=== PATIENT | female | born 2000 | race Caucasian/White ===

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

== ENCOUNTER 2023-07-31 05:22 | Inpatient (IN) ==
--- NOTE | 2023-07-29 09:09 | Anesthesiology Consultation ---
Date of Service July 29, 2023 Assessment & Plan (1) Encounter for pre-operative examination: Plan - Per assessment manager on 07/29/2023: No known infectious disease contacts, current infectious disease symptoms in past 10 days or COVID positive test result in the past 90 days. 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 initiated History Surgery Operation Date: 07/31/23 07:30 Proposed Procedures p Section (Delivery of Baby Through Abdominal Incision) - Estelle Carrillo MD Height/Weight Height: 5 ft 4 in Weight: 112.945 kg Allergies Allergy/AdvReac Type Severity Reaction Status Date / Time vancomycin Allergy Severe ANAPHYLAXIS-SOB, Verified 07/29/23 07:40 THROAT SWELLING, RASH, ITCHY grass pollen Allergy Unknown Congested Verified 07/29/23 07:40 mold Allergy Unknown Congested Verified 07/29/23 07:40 lactase AdvReac Unknown INTOLERANCE Verified 07/29/23 07:40 hydromorphone [From Dilaudid] AdvReac Vomiting Verified 07/29/23 07:40 Medications Home Medications Medication Instructions Recorded Confirmed Last Taken prenat.vits,justice,[id number] 1 tab PO QAM 12/26/22 07/29/23 07/25/23 nystatin-triamcinolone 100,000 1 applic topical BID #15 grams 07/08/23 07/29/23 07/26/23 unit/gram-0.1 % topical ointment aspirin 81 mg capsule 81 mg PO DAILY 07/17/23 07/29/23 07/25/23 insulin aspart U-100 100 unit/mL 1 sliding scale dose subcut 07/17/23 07/29/23 07/17/23 17:36 (3 mL) subcutaneous pen (Novolog USEASDIRECTD 36 units FlexPen U-100 Insulin aspart) insulin detemir U-100 100 unit/mL See Rx Instructions .Route .COMPLEX 07/17/23 07/29/23 07/26/23 (3 mL) subcutaneous pen (Levemir FlexPen) omeprazole 10 mg capsule,delayed 10 mg PO QAM 07/17/23 07/29/23 07/25/23 release amoxicillin 500 mg tablet 500 mg PO BID 10 days #20 tabs 07/25/23 07/29/23 Unknown Past Medical History Medical History Hx of migraines UTI (urinary tract infection) been taking abx since 07/26/23 High blood cholesterol Chronic constipation 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 Irregular heart beat "WHEN LIES DOWN"-PT WAS TOLD "NOTHING TO WORRY ABOUT" Vitamin D deficiency Type 1 diabetes mellitus Sleep paralysis Lactase deficiency Insomnia Depression with anxiety (~07/12/23) Attention deficit disorder (ADD) Kidney stone HX Kidney infection HX Left ovarian cyst Past Family History Family History Grandmother (Maternal) Ovarian cancer, Onset Age: 26 Grandmother (Paternal) Breast cancer Mother Hypertension Cancer of kidney Other Cancer Diabetes Denies family history of Crohn's disease Colorectal cancer Ulcerative colitis Past Surgical History Surgical History History of tooth extraction History of esophagogastroduodenoscopy (EGD) S/P tonsillectomy and adenoidectomy Social History Smoking Status: Former smoker tobacco type: cigarettes Smoking cigarettes per day: 1 year ago Do You Dip or Chew Tobacco: No Hx Alcohol Use: Yes (not while ) alcohol intake frequency: a few times a month Hx Substance Use: No substance use type: does not use Lab Results Anesthesia Preop Results Results Anesthesia Widget: WBC 10.04 K/ul (4.8-10.8) 07/17/23 Hgb 12.1 g/dl (12.0-16.0) 07/17/23 Hct 37.6 % (37.0-47.0) 07/17/23 Plt 143 K/uL (130-400) 07/17/23 Na 137 mmol/L (136-145) 07/17/23 K 3.7 mmol/L (3.5-5.1) 07/17/23 Cl 107 mmol/L (98-107) 07/17/23 CO2 22 mmol/L (21-32) 07/17/23 BUN 6 mg/dl (6-23) 07/17/23 Creat 0.63 mg/dl (0.6-1.2) 07/17/23 Glucose Level 159 mg/dl (70-99(Fasting)) H 07/17/23 POC Glucose 141 mg/dl (70-99) H 07/17/23 TSH 1.51 uIU/mL (0.30-4.50) 06/18/23 HA1c 7.7 % (4.5-5.6) H 07/17/23 Urine Color Dark Yellow 07/24/23 Urine Appearance Turbid (Clear) A 07/24/23 Urine pH 6.0 (4.5-7.5) 07/24/23 Urine Specific [place] 1.023 (1.000-1.030) 07/24/23 Urine Protein Trace (Negative) H 07/24/23 Urine Glucose (UA) 2+ (Negative) H 07/24/23 Urine Ketones 1+ (Negative) H 07/24/23 Urine Blood Negative (Negative) 07/24/23 Urine Nitrite Negative (Negative) 07/24/23 Urine Bilirubin 1+ (Negative) H 07/24/23 Urine Urobilinogen Negative (Negative) 07/24/23 Urine Leukocyte Esterase 1+ (Negative) H 07/24/23 Urine WBC (Auto) 10-30 /hpf (0-5) H 07/24/23 Urine RBC (Auto) 0-4 /hpf (0-4) 07/24/23 Urine Hyaline Casts (Auto) 5-10 /lpf (0-5) H 07/24/23 Urine Epithelial Cells (Auto) >30 /lpf (0-5) H 07/24/23 Urine Bacteria (Auto) 2+ (Negative) H 07/24/23 Testing Electrocardiogram Date: 01/04/23 NSR, rate 75 bpm Other Testing Head and neck CTA 09/28/21 1. There is no hemorrhage, mass effect, or evidence of acute territorial ischemia by CT criteria. 2. Unremarkable CT angiogram of the brain. 3. Unremarkable CT angiogram of the neck. 4. There are numerous mildly enlarged cervical chain, submandibular, and supraclavicular lymph nodes. These are nonspecific and may be reactive. Correlate clinically for evidence of an infectious process such as mononucleosis. Clinical follow-up to resolution is recommended.
--- NOTE | 2023-07-30 17:17 | History & Physical Report ---
Date of Service July 30, 2023 Assessment & Plan (1) Encounter for pre-operative examination: (2) Type 1 diabetes mellitus affecting in third trimester, antepartum: Plan -Discussed indications, risks, benefits, alternatives with risks including infection, bleeding, injury to adjacent structures (bowel, bladder, ureters, blood vessels, nerves, baby), possible need for blood transfusion and/or life saving hysterectomy, VTE. Discussed reasoning for timing of delivery, risks vs benefits of it. Discussed risk of hypoglycemia given DM and 38 wks, however this would possibly occur at previously planned date as well. Consent reviewed in detail w/ pt and signed after all questions answered to her satisfaction. -planned for ancef, seems to be allergic to amoxicillin but tolerated keflex before. T&C 2U, has insulin regimen from endocrine for and was instructed on insulin this evening and in AM. History of Present Illness Chief Complaint: preop Primary Care Provider: Marilyn Rivera MD 23 yo G1 presents for preop for planned primary CS at 38 weeks due to T1DM and suspected LGA. +FM; denies ctx, LOF, VB. Is managed by [facility] endocrine who has her on levemir 70u AM/68u PM, 44u w/ meals. 07/12 had growth US EFW > 98% and AC > 98%. Projected to be over 4500g this week. 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: G1 irreg cycles denies hx stis 01/2022 neg cyto Allergies Allergy/AdvReac Type Severity Reaction Status Date / Time vancomycin Allergy Severe ANAPHYLAXIS-SOB, Verified 07/30/23 13:26 THROAT SWELLING, RASH, ITCHY grass pollen Allergy Unknown Congested Verified 07/30/23 13:26 mold Allergy Unknown Congested Verified 07/30/23 13:26 lactase AdvReac Unknown INTOLERANCE Verified 07/30/23 13:26 hydromorphone [From Dilaudid] AdvReac Vomiting Verified 07/30/23 13:26 Home Medications Medication Instructions Recorded Confirmed Type prenat.vits,justice,ggn-mcwc-nwcib 1 tab PO QAM 12/26/22 07/29/23 History nystatin-triamcinolone 100,000 1 applic topical BID #15 grams 07/08/23 07/29/23 Rx unit/gram-0.1 % topical ointment aspirin 81 mg capsule 81 mg PO DAILY 07/17/23 07/29/23 History insulin aspart U-100 100 unit/mL 1 sliding scale dose subcut 07/17/23 07/29/23 History (3 mL) subcutaneous pen (Novolog USEASDIRECTD FlexPen U-100 Insulin aspart) insulin detemir U-100 100 unit/mL See Rx Instructions .Route .COMPLEX 07/17/23 07/29/23 History (3 mL) subcutaneous pen (Levemir FlexPen) omeprazole 10 mg capsule,delayed 10 mg PO QAM 07/17/23 07/29/23 History release Patient History Medical History Hx of migraines UTI (urinary tract infection) been taking abx since 07/26/23 High blood cholesterol Chronic constipation 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 Irregular heart beat "WHEN LIES DOWN"-PT WAS TOLD "NOTHING TO WORRY ABOUT" Vitamin D deficiency Type 1 diabetes mellitus Sleep paralysis Lactase deficiency Insomnia Depression with anxiety (~07/12/23) Attention deficit disorder (ADD) Kidney stone HX Kidney infection HX Left ovarian cyst Surgical History History of tooth extraction History of esophagogastroduodenoscopy (EGD) S/P tonsillectomy and adenoidectomy Family History Grandmother (Maternal) Ovarian cancer, Onset Age: 26 Grandmother (Paternal) Breast cancer Mother Hypertension Cancer of kidney Other Cancer Diabetes Denies family history of Crohn's disease Colorectal cancer Ulcerative colitis Social History Smoking Status: Former smoker Tobacco Type: Cigarettes Cigarettes Per Day: 1 year ago; Second Hand Exposure: No; Do You Dip or Chew Tobacco: No; Hx Alcohol Use: Yes (not while ) Hx Substance Use: No Preferred Language: Kyrgyz Communication Ability: Effective Silverware Buffer Required: No Beliefs That Will Affect Care: None marital status: Single marital status details: motherPete Hagan [phone] Current Living Situation: Significant Other Current Living Situation Comment: fiyovana and dog current occupational status: employed 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 Feels Safe at Home: Yes Assistive Devices: None Physical Exam Respiratory: normal respiratory effort, lungs clear to auscultation Cardiovascular: RRR, no murmur, no edema Genitourinary: NST reactive Results & Data Laboratory Results OB Labs: Blood Type A Positive 01/04/23 Antibody Screen NEGATIVE 01/04/23 Hemoglobin 12.1 g/dl (12.0-16.0) 07/17/23 Hematocrit 37.6 % (37.0-47.0) 07/17/23 Mean Corpuscular Volume 83.4 fL (80.0-100.0) 07/17/23 Platelet Count 143 K/uL (130-400) 07/17/23 Rubella IgG Antibody Immune (Immune) 01/04/23 Rapid Plasma Reagin Nonreactive (Nonreactive) 01/04/23 Hepatitis B Surface Antigen. NON-REACTIVE (NON-REACTIVE) 01/04/23 Hepatitis C Antibody (EIA) NON-REACTIVE (NON-REACTIVE) 01/04/23 HIV (1&2) Ag and Ab Confirmation NON-REACTIVE (NON-REACTIVE) 01/04/23 Maternal Serum Alpha Fetoprotein 39.0 ng/mL 03/01/23 OB Optional Labs: Chlamydia trachomatis RNA Not Detected (NotDetected) 01/04/23 Neisseria gonorrhoeae RNA Not Detected (NotDetected) 01/04/23 Thyroid Stimulating Hormone (TSH) 1.51 uIU/mL (0.30-4.50) 06/18/23 Alpha Fetoprotein Triple Screen SEE NOTE 03/01/23 GBS+ urine Diagnostic Findings 07/12 EFW and AC > 98%, ant plac Coding Level of Care Code None Diagnoses Encounter for pre-operative examination Z01.818 Type 1 diabetes mellitus affecting in third trimester, antepartum O24.013
[2023-07-31] MEDS ORDERED: SODIUM CHLORIDE 0.9% 250 ML IV PRN ×2 (05:36→06:15)
[2023-07-31] MEDS ORDERED: LACTATED RINGER'S 1,000 ML IV SCH ×2 (06:00→09:32)
[2023-07-31] MEDS ORDERED: ceFAZolin 3,000 MG in DEXTROSE 5% 50 ML IV SCH (06:00)
[2023-07-31] MEDS ORDERED: CITRIC ACID/SODIUM CITRATE 15 ML UDC PO SCH (06:00)
[2023-07-31 06:27] LABS: Basophils # (auto) 0.02 K/uL (0.00-0.20); Basophils % (auto) 0.2 %; Eosinophils # (auto) 0.09 K/uL (0.00-0.50); Hemoglobin 12.8 g/dl (12.0-16.0); Immature Granulocytes # (auto) 0.07 K/uL (0.01-0.20); Immature Granulocytes % (auto) 0.7 %; Lymphocytes # (auto) 1.93 K/uL (1.20-3.40); Lymphocytes % (auto) 20.4 %; Mean Corpuscular Hemoglobin 26.7 pg (25.0-34.0); Mean Corpuscular Volume 83.5 fL (80.0-100.0); Mean Platelet Volume 13.4 fL (9.4-12.4); Monocytes # (auto) 0.61 K/uL (0.11-0.59); Monocytes % (auto) 6.4 %; Neutrophils # (auto) 6.75 K/uL (1.40-6.50); Neutrophils % (auto) 71.3 %; Platelet Count 133 K/uL (130-400); RDW Coefficient of Variation 14.7 % (11.5-14.5); RDW Standard Deviation 44.9 fL (36.4-46.3); Red Blood Count 4.79 M/uL (4.20-5.40); White Blood Count 9.47 K/ul (4.8-10.8)
[2023-07-31] MEDS ORDERED: fentaNYL citrate PF 100 MCG/2 ML VIAL ONE (06:40)
[2023-07-31] MEDS ORDERED: MoRPHine SULFATE PF 1 MG/ML 10 ML AMP/VIAL ONE (06:40)
[2023-07-31] MEDS ORDERED: PHENYLEPHRINE HCL 10 MG/ML VIAL ONE (06:42)
[2023-07-31] MEDS ORDERED: OXYTOCIN 10 UNITS/ML VIAL ONE ×3 (06:44)
--- NOTE | 2023-07-31 07:26 | History & Physical Bridge Note ---
Date of Service July 31, 2023 History & Physical Bridge Note I have examined the patient, reviewed the History & Physical and in the interval since the performance of the History & Physical I have noted the following changes of clinical significance: no changes noted
[2023-07-31] MEDS ORDERED: NALBUPHINE HCL 5 MG in SYRINGE 0 ML IV PRN (08:04)
[2023-07-31] MEDS ORDERED: HYDROmorphone INJ 0.5 MG/0.5 ML SYR IV PRN (08:04)
[2023-07-31] MEDS ORDERED: NALOXONE HCL 0.4 MG/1 ML VIAL/CARP IV PRN (08:04)
[2023-07-31] MEDS ORDERED: NALOXONE HCL 1 MG in SODIUM CHLORIDE 0.9% 1,000 ML IV PRN (08:04)
[2023-07-31] MEDS ORDERED: ePHEDrine sulfate 50 MG/ML AMP IV PRN (08:04)
[2023-07-31] MEDS ORDERED: diphenhydrAMINE 50 MG/ML VIAL IV PRN (08:04)
[2023-07-31] MEDS ORDERED: ONDANSETRON INJ 2 MG/ML 2 ML VIAL IV PRN (08:04)
[2023-07-31] MEDS ORDERED: NALOXONE HCL 0.08 MG in SYRINGE 1.8 ML IV PRN (08:04)
[2023-07-31] MEDS ORDERED: LACTATED RINGER'S 500 ML IV PRN (08:04)
[2023-07-31] MEDS ORDERED: MoRPHine SULFATE PF 1 MG/ML 10 ML AMP/VIAL INT SPINAL ONE (08:04)
[2023-07-31] MEDS ORDERED: DC INTRASPINAL MORPHINE SCH (08:15)
[2023-07-31] MEDS ORDERED: NO NARCOTICS OR SEDATIVES SCH (08:15)
[2023-07-31] MEDS ORDERED: SODIUM CHLORIDE 0.9% 1,000 ML IV SCH (08:15)
[2023-07-31] MEDS ORDERED: ONDANSETRON INJ 2 MG/ML 2 ML VIAL ONE ×3 (08:43)
[2023-07-31] MEDS ORDERED: PHARMACY GLYCEMIC MGMT CONSULT PRN (09:30)
--- NOTE | 2023-07-31 09:30 | Anesthesiology Progress Note ---
Date of Service July 31, 2023 Anesthesia Post Procedure Vital Signs Vital Signs: Temp Pulse Resp BP Pulse Ox O2 Del Method 07/31/23 09:27 79 108/55 L 07/31/23 09:26 78 96 07/31/23 09:23 79 94 07/31/23 09:21 80 99 07/31/23 09:16 80 98 07/31/23 09:13 79 122/56 L 07/31/23 07:22 88 145/71 H 07/31/23 05:54 96 H 130/84 07/31/23 05:40 36.8 C 18 Room Air Notes Mental Status: alert / awake / arousable Patient Amnestic to Procedure: Yes Nausea / Vomiting: adequately controlled Pain: adequately controlled Airway Patency, RR, SpO2: stable & adequate BP & HR: stable & adequate Hydration State: stable & adequate Neuraxial Anesthesia: was administered and sensory block is resolving Anesthetic Complications: no major complications apparent
--- NOTE | 2023-07-31 09:30 | Operative Report ---
PG Post Operative Report Pre & Post Diagnosis Operation Date: 07/31/23 07:30 Pre-Op Diagnosis: intrauterine at 38 weeks gestation poorly controlled type 1 diabetes suspected large for gestational age fetus Post-Op Diagnosis: same I identified the patient and participated in the time-out.: Yes Procedure Operation Date: 07/31/23 07:30 Actual Procedures p Primary Low Transverse Section in for live male liz at 0830 - Estelle Carrillo MD Surgeon Estelle Carrillo MD Cutting Room Supervisor MD Niurka Estimated Blood Loss 600 Findings Consistent with Post-Op Diagnosis Viable male infant weighing 10lb 11oz, APGARs of 8 and 9. Normal appearing uterus, bilateral fallopian tubes and ovaries. Subcutaneous tissue mildly edematous upon entry into skin Fluids 700cc crystalloid, 100cc UOP by altman catheter Specimens Placenta, cord blood Drains Urine draining clear urine Anesthesia Type Spinal Complications none Disposition Accompanied Patient To Recovery: Yes Disposition: L&D Indications 23 yo G1 at 38 wks presents for planned above listed procedure. She is a T1DM with difficulty controlling BG appropriately so recommended for delivery. Most recent growth US projected EFW and AC >98% and over 4500g in this week so was counseled regarding options and desired to proceed with CS Description of Procedure The patient was taken to the operating room after consents were ensured. The patient was properly identified. Spinal anesthesia was obtained without difficulty. The patient was placed in a dorsal supine position with left lateral tilt, then prepped and draped in normal sterile fashion. Surgical time out was performed. Antibiotics were given for prophylaxis. Anesthesia was tested to ensure adequate surgical levels. Pfannenstiel skin incision was performed and carried down to the underlying fascia with a knife. The fascia was then nicked in the midline and extended laterally with pickups and Zamora scissors. Superior portion of the fascia was grasped with Kochers x2 and elevated off the underlying rectus muscles using blunt dissection. Inferior portion of the fascia was then grasped with Arlin clamps x2 and also elevated off the underlying muscles with blunt dissection. Midline was identified. The peritoneum was then entered and extended to provide adequate room for delivery of baby. A hand was inserted into the abdomen, uterus was noted to be clear of adhesions. Bladder blade was inserted. A low transverse uterine incision was made in the uterus and extended bluntly in a superior to inferior fashion. Amniotomy was made with clear fluid at the time of rupture. head was grasped and elevated to the hysterotomy in an atraumatic fashion however was noted to be floating. Vacuum was applied to the flexion point and pressure increased to the green zone. With fundal pressure, vacuum was pulled and head delivered atraumatically in MARTIN position, loose nuchal cord. Remainder of the body delivered without incident. Nose and mouth were bulb suctioned on the surgical field. The cord was double clamped and cut, baby was handed off to awaiting pediatrics staff. Cord segment and blood were obtained. Placenta was then expressed from the uterus. The uterus was exteriorized. Several passes were made inside the uterus to remove the remaining membranes. Attention was then turned to the hysterotomy, which was then closed with a running locked suture of 0 Vicryl on a CTX needle. An imbricating layer was then performed using 0-Monocryl. There was noted to be good hemostasis. The posterior cul-de-sac was then inspected and cleaned of clot and debris. The hysterotomy was again inspected and noted to be hemostatic. The uterus was returned to the abdomen. The right and left pericolic gutters were cleaned of all clot and debris. The hysterotomy was again noted to be hemostatic. Space of Retzius was noted to be hemostatic. The fascia was then closed with a running suture of 0 Vicryl on a CT1 needle. Subcutaneous tissue was copiously irrigated and noted to be hemostatic. Subcutaneous tissue was re-approximated using 2-0 plain gut. The skin was then closed with a running suture of 3-0 Monocryl in a subcuticular fashion. At termination of the procedure, fundal pressure was applied and a moderate amount of lochia was expressed. JORDI dressing was applied to the patient. She tolerated the procedure well. All sponge, needle, instrument counts were correct x 2. I attest to the content of the Intraoperative Record and any orders documented therein. Any exceptions are noted below. OB Procedure Charges 05185
[2023-07-31] MEDS ORDERED: OXYTOCIN 20 UNITS/LR 1,002 ML IV SCH (09:32)
[2023-07-31] MEDS ORDERED: HYDROCORTISONE ACETATE 25 MG SUPP PR PRN (09:32)
[2023-07-31] MEDS ORDERED: MAGNESIUM HYDROXIDE SUSP 30 ML UDC PO PRN (09:32)
[2023-07-31] MEDS ORDERED: BENZOCAINE 20% SPRY 85 APPLN/85 GM CAN EXT PRN (09:32)
[2023-07-31] MEDS ORDERED: SENNA 8.6 MG TAB PO PRN (09:32)
[2023-07-31] MEDS ORDERED: DIPHTHERIA/TETANUS/PERTUSSIS Vaccine (Tdap, Age 7+yrs) 0.5mL SYR/VL IM ONE (09:32)
[2023-07-31] MEDS: KETOROLAC 30 MG/ML VIAL IV PRN ×2 (10:35→18:38)
[2023-07-31] MEDS ORDERED: GLUCAGON FOR INJ 1 MG VIAL IM PRN (11:45)
[2023-07-31] MEDS ORDERED: GLUCOSE 10 TAB/TUBE PO PRN (11:45)
[2023-07-31] MEDS ORDERED: DEXTROSE 50% 50 ML SYRINGE IV PRN (11:45)
[2023-07-31] MEDS ORDERED: Continuous Glucose Monitor SCH (11:45)
[2023-07-31] MEDS ORDERED: GLUCOSE 40% GEL 15 GM TUBE PO PRN (11:45)
[2023-07-31] MEDS ORDERED: CARBOHYDRATES FOR HYPOGLYCEMIA PO PRN (11:45)
[2023-07-31] MEDS: INSULIN ASPART 100 UNIT/ML SC SCH ×3 (12:40→21:39)
--- NOTE | 2023-07-31 13:17 | Pharmacy Report ---
Pharmacy Glycemic Short Note 2 - Date of Service July 31, 2023 - Glycemic Short BSG Results (Last 24 hours): 07/31/23 07/31/23 07:12 10:02 POC Glucose 90 89 OUTPATIENT ANTIDIABETIC REGIMEN: * During : Levemir 70 units @ 10am, 68 units @ 10pm, NovoLog with meals * Post plan from Endocrinology: * Levemir 35 units BID @ 10am and 10pm * Aspart 10-15 units with meals * Correction 1:25 for BG> 130mg/dl ASSESSMENT: * 23 yo female, s/p section, type 1 diabetic, on regimen as above, and recommended decrease in doses by endocrinology. * Pharmacy consulted for glycemic control. Met with patient and had a long discussion, we will use her insulin pens (NovoLog and Levemir) and begin with reduced doses from endocrinology as patient is euglycemic and just starting on clears post-op. * Patient states she does not think that she plans to breastfeed. 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 PLAN FOR INPATIENT GLYCEMIC CONTROL: * Basal insulin * Levemir SQ BID - 20 units for BG < 100mg/dl, 35 units for BG 100mg/dl or greater * Bolus insulin * NovoLog per scale ACHS or Q6hrs while NPO * Goal Range: Low 110 mg/dL - High 140 mg/dL * Correction Factor: 25 mg/dL/unit * Nutritional / Prandial insulin per carb ratio of 1 unit per 8 grams CHO consumed
[2023-07-31] MEDS: INSULIN DETEMIR SC SCH ×2 (13:42→21:37)
[2023-07-31] MEDS: SIMETHICONE 80 MG CHEW PO SCH ×3 (13:43→20:26)
[2023-07-31] MEDS: DOCUSATE SODIUM 100 MG CAP PO SCH (20:25)
[2023-08-01] MEDS: KETOROLAC 30 MG/ML VIAL IV PRN (00:07)
[2023-08-01] MEDS ORDERED: diphenhydrAMINE Capsule 25 MG CAP PO PRN (02:04)
[2023-08-01] MEDS ORDERED: PROMETHAZINE HCL 25 MG in SODIUM CHLORIDE 0.9% 50 ML IV PRN (02:04)
[2023-08-01] MEDS ORDERED: diphenhydrAMINE 50 MG/ML VIAL IV PRN (02:04)
[2023-08-01] MEDS ORDERED: KETOROLAC 30 MG/ML VIAL IV PRN (02:04)
[2023-08-01] MEDS ORDERED: ONDANSETRON INJ 2 MG/ML 2 ML VIAL IV PRN (02:04)
[2023-08-01] MEDS: INSULIN ASPART 100 UNIT/ML SC SCH ×5 (02:45→22:00)
--- NOTE | 2023-08-01 04:35 | Obstetrical Progress Note ---
Date of Service <Armando Machuca DO - Last Filed: 08/01/23 06:22> August 01, 2023 Assessment & Plan <Armando Machuca DO - Last Filed: 08/01/23 06:22> (1) Type 1 diabetes mellitus: (2) Status post delivery: Plan 23 year old female, , POD#1: Eating well, voiding well, ambulating well Vitals reviewed, WNL Pain well controlled with Percocet and Motrin Routine post-op care - OOB, ambulation, diet progression as tolerated Will have 6 week follow up with Dr. Carrillo <Estelle Carrillo MD - Last Filed: 08/01/23 07:32> (1) Type 1 diabetes mellitus: (2) Status post delivery: Subjective <Armando Machuca - Last Filed: 08/01/23 06:22> Ambulation: ambulating normally Voiding: no voiding problems Passing Gas:: Yes Diet Tolerance:: regular diet Lochia:: Moderate Feeding Type:: bottle feeding Pain well controlled with Percocet and Motrin Review of Systems -Denies fever or chills -Denies dyspnea, chest pain, or palpitations -Denies dysuria -Denies headache or changes in vision Physical Exam <Armando Machuca - Last Filed: 08/01/23 06:22> General: Alert and oriented. No acute distress Cardiac: Regular rate and rhythm, no murmurs appreciated Respiratory: Lungs clear to auscultation bilaterally, No increased work of breathing Abdominal: Soft, non-tender, non-distended. Bowel sounds present. Uterus: Uterine fundus firm, palpable below umbilicus Extremities: No lower extremity edema, calves non-tender bilaterally Results & Data <Armando Machuca - Last Filed: 08/01/23 06:22> Vital Signs (Past 12 Hours) Vital Signs Temp Pulse Resp BP Pulse Ox O2 Del Method 08/01/23 01:55 20 99 08/01/23 00:05 20 98 08/01/23 00:05 36.9 C 87 20 103/70 98 Room Air 07/31/23 23:55 20 100 07/31/23 21:55 20 100 07/31/23 20:55 20 100 07/31/23 19:35 20 98 07/31/23 19:35 36.8 C 88 20 109/71 98 Room Air 07/31/23 18:55 20 99 07/31/23 17:48 20 100 Supervising Physician <Estelle Carrillo MD - Last Filed: 08/01/23 07:32> Co-Signing Physician Notes Resident Physician Supervision Note: I interviewed and examined the patient. Discussed with Dr. Machuca and agree with findings and plan as documented in the note. Any exceptions or clarifications are listed here: POD1 s/p pLTCS, doing well. VSS, exam benign and wnl, ryder dressing in place. Continue routine postop care, using own insulin w/ assistance of pharmacy to manage T1DM. Will need ryder removed next week Documented By: Estelle Carrillo MD Resident Activity Tracking <Armando Machuca DO - Last Filed: 08/01/23 06:22> Resident Involvement: Resident Care Provided Care Provided: OB Delivery
[2023-08-01] MEDS: oxyCODONE/ACETAMINOPHEN 5mg/325mg TAB PO PRN ×4 (06:09→20:58)
[2023-08-01] MEDS: IBUPROFEN 600 MG TAB PO PRN ×4 (06:09→21:00)
[2023-08-01 07:58] LABS: Basophils # (auto) 0.02 K/uL (0.00-0.20); Basophils % (auto) 0.2 %; Eosinophils # (auto) 0.07 K/uL (0.00-0.50); Eosinophils % (auto) 0.8 %; Hematocrit (blood only) 30.1 % (37.0-47.0); Hemoglobin 9.9 g/dl (12.0-16.0); Immature Granulocytes # (auto) 0.05 K/uL (0.01-0.20); Immature Granulocytes % (auto) 0.6 %; Lymphocytes # (auto) 1.44 K/uL (1.20-3.40); Lymphocytes % (auto) 16.1 %; Mean Corpuscular Hemoglobin 26.9 pg (25.0-34.0); Mean Corpuscular Hgb Conc 32.9 g/dL (32.0-36.0); Mean Corpuscular Volume 81.8 fL (80.0-100.0); Mean Platelet Volume 13.6 fL (9.4-12.4); Monocytes % (auto) 5.6 %; Neutrophils # (auto) 6.87 K/uL (1.40-6.50); Neutrophils % (auto) 76.7 %; Platelet Count 112 K/uL (130-400); RDW Coefficient of Variation 14.9 % (11.5-14.5); RDW Standard Deviation 43.8 fL (36.4-46.3); Red Blood Count 3.68 M/uL (4.20-5.40); White Blood Count 8.95 K/ul (4.8-10.8)
[2023-08-01] MEDS: SIMETHICONE 80 MG CHEW PO SCH ×4 (08:53→21:00)
[2023-08-01] MEDS: FERROUS SULFATE 325 MG TAB PO SCH (08:54)
[2023-08-01] MEDS: DOCUSATE SODIUM 100 MG CAP PO SCH ×2 (08:54→20:58)
[2023-08-01] MEDS: PRENATAL VITAMIN 1 TAB PO SCH (08:54)
--- NOTE | 2023-08-01 09:32 | Pharmacy Report ---
Pharmacy Glycemic Short Note 2 - Date of Service August 01, 2023 - Glycemic Short BSG Results (Last 24 hours): 07/31/23 08/01/23 10:02 08:29 POC Glucose 89 220 H OUTPATIENT ANTIDIABETIC REGIMEN: * During : Levemir 70 units @ 10am, 68 units @ 10pm, NovoLog with meals * Post plan from Endocrinology: * Levemir 35 units BID @ 10am and 10pm * Aspart 10-15 units with meals: BG - 130 divided by 25 = NovoLog dose ASSESSMENT: 08/01/23 * Patient would like to manage insulin dosing per endocrine via CGM. Patient and nursing following CGM policy. Patient likes to dose NovoLog after eating, encouraged patient to give prior to eating for better glycemic control. Patient using own home Levemir and NovoLog. * Pharmacy consult not needed. 07/31/23 * 23 yo female, s/p section, type 1 diabetic, on regimen as above, and recommended decrease in doses by endocrinology. * Pharmacy consulted for glycemic control. Met with patient and had a long discussion, we will use her insulin pens (NovoLog and Levemir) and begin with reduced doses from endocrinology as patient is euglycemic and just starting on clears post-op. * Patient states she does not think that she plans to breastfeed. 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 PLAN FOR INPATIENT GLYCEMIC CONTROL: * Per Endocrinology: * Basal insulin * Levemir 35 units SQ BID * Bolus insulin * NovoLog per scale ACHS or Q6hrs while NPO * BG - 130 divided by 25 = NovoLog dose * Pharmacy is signing off of glycemic consult and will no longer be making adjustments to inpatient regimen. Please feel free to re-consult if needed. Thank you.
[2023-08-01] MEDS: INSULIN DETEMIR SC SCH ×2 (09:50→23:32)
[2023-08-01] MEDS ORDERED: bisacodyL 5 MG TABEC PO SCH (20:00)
[2023-08-02] MEDS: oxyCODONE/ACETAMINOPHEN 5mg/325mg TAB PO PRN ×6 (00:58→21:10)
[2023-08-02] MEDS: IBUPROFEN 600 MG TAB PO PRN ×6 (00:58→22:22)
--- NOTE | 2023-08-02 04:55 | Obstetrical Progress Note ---
Date of Service <Armando Machuca - Last Filed: 08/02/23 07:16> August 02, 2023 Assessment & Plan <Armando Machuca - Last Filed: 08/02/23 07:16> (1) Type 1 diabetes mellitus: (2) Status post delivery: Plan 23 year old female, , POD#2: Eating well, voiding well, ambulating well Vitals reviewed, WNL Pain well controlled with Percocet and Motrin Carmel dressing in place, remove at 1 week post-op Routine post-op care - OOB, ambulation, diet progression as tolerated Will have 6 week follow up with Dr. Carrillo <Addi Rocha MD, FACOG - Last Filed: 08/02/23 07:20> (1) Type 1 diabetes mellitus: (2) Status post delivery: Subjective <Armando Machuca - Last Filed: 08/02/23 07:16> Ambulation: ambulating normally Voiding: no voiding problems Passing Gas:: Yes Diet Tolerance:: regular diet Lochia:: Moderate Feeding Type:: bottle feeding Pain well controlled with Percocet and Motrin Review of Systems -Denies fever or chills -Denies dyspnea, chest pain, or palpitations -Denies dysuria -Denies headache or changes in vision Physical Exam <Armando Machuca - Last Filed: 08/02/23 07:16> General: Alert and oriented. No acute distress Cardiac: Regular rate and rhythm, no murmurs appreciated Respiratory: Lungs clear to auscultation bilaterally, No increased work of breathing Abdominal: Soft, non-tender, non-distended. Bowel sounds present. Uterus: Uterine fundus firm, palpable below umbilicus Skin: Carmel dressing in place Extremities: No lower extremity edema, calves non-tender bilaterally Results & Data <Armando Machuca - Last Filed: 08/02/23 07:16> Vital Signs (Past 12 Hours) Vital Signs Temp Pulse Resp BP Pulse Ox O2 Del Method 08/02/23 03:15 36.6 C 90 16 125/79 98 Room Air 08/01/23 23:30 36.4 C L 93 H 20 120/84 98 Room Air 08/01/23 17:00 36.6 C 95 H 20 140/76 98 Room Air Supervising Physician <Addi Rocha MD, FACOG - Last Filed: 08/02/23 07:20> Co-Signing Physician Notes Resident Physician Supervision Note: I was present with Dr. Machuca during the history and exam. I discussed the case with the resident and agree with the findings and plan as documented in the note. Any exceptions or clarifications are listed here: [None] Documented By: Addi Rocha MD, FACOG Resident Activity Tracking <Armando Machuca DO - Last Filed: 08/02/23 07:16> Resident Involvement: Resident Care Provided Care Provided: OB Delivery
[2023-08-02 06:42] LABS: Hematocrit (blood only) 28.2 % (37.0-47.0); Hemoglobin 9.3 g/dl (12.0-16.0)
[2023-08-02] MEDS: DOCUSATE SODIUM 100 MG CAP PO SCH ×2 (08:29→21:10)
[2023-08-02] MEDS: FERROUS SULFATE 325 MG TAB PO SCH (08:29)
[2023-08-02] MEDS: PRENATAL VITAMIN 1 TAB PO SCH (08:29)
[2023-08-02] MEDS: SIMETHICONE 80 MG CHEW PO SCH ×4 (08:29→21:10)
[2023-08-02] MEDS ORDERED: bisacodyL 10 MG SUPP PR PRN (09:18)
[2023-08-02] MEDS: INSULIN DETEMIR SC SCH ×2 (10:00→22:20)
[2023-08-02] MEDS: INSULIN ASPART 100 UNIT/ML SC SCH ×4 (16:18→22:20)
[2023-08-03] MEDS: IBUPROFEN 600 MG TAB PO PRN ×2 (03:06→08:55)
[2023-08-03] MEDS: oxyCODONE/ACETAMINOPHEN 5mg/325mg TAB PO PRN ×2 (03:06→08:55)
--- NOTE | 2023-08-03 04:20 | Obstetrical Progress Note ---
Date of Service <Aramndo Mendozamattie - Last Filed: 08/03/23 06:03> August 03, 2023 Assessment & Plan <Armando Machuca - Last Filed: 08/03/23 06:03> (1) Type 1 diabetes mellitus: (2) Status post delivery: Plan 23 year old female, , POD#3: Eating well, voiding well, ambulating well Vitals reviewed, WNL Pain partially alleviated with Percocet and Motrin Carmel dressing in place, remove at 1 week post-op Routine post-op care - OOB, ambulation, diet progression as tolerated Will have 6 week follow up with Dr. Carrillo <Peyton Morgan MD - Last Filed: 08/03/23 07:09> (1) Type 1 diabetes mellitus: I was present with Dr. Machuca during the history and exam. I discussed the case with the resident and agree with the findings and plan as documented in the note. Any exceptions or clarifications are listed here: [None] (2) Status post delivery: Subjective <Armando Mendozamattie - Last Filed: 08/03/23 06:03> Ambulation: ambulating normally Voiding: no voiding problems Passing Gas:: Yes Diet Tolerance:: regular diet Lochia:: Moderate Feeding Type:: bottle feeding Patient endorses moderate pain, partially alleviated with Percocet and Motrin Review of Systems -Denies fever or chills -Denies dyspnea, chest pain, or palpitations -Denies dysuria -Denies headache or changes in vision Physical Exam <Armando MendozaDO mattie - Last Filed: 08/03/23 06:03> General: Alert and oriented. No acute distress Cardiac: Regular rate and rhythm, no murmurs appreciated Respiratory: Lungs clear to auscultation bilaterally, No increased work of breathing Abdominal: Soft, non-tender, non-distended. Bowel sounds present. Uterus: Uterine fundus firm, palpable below umbilicus Skin: Carmel dressing in place Extremities: Mild bilateral LE edema to mid-calf level, symmetrical bilaterally, no erythema or warmth to touch, calves non-tender bilaterally Results & Data <Armando DO Sven - Last Filed: 08/03/23 06:03> Vital Signs (Past 12 Hours) Vital Signs Temp Pulse Resp BP Pulse Ox O2 Del Method 08/02/23 22:50 36.4 C L 82 18 120/78 99 Room Air 08/02/23 20:45 Room Air 08/02/23 19:32 36.8 C 84 18 116/53 L 98 Room Air Resident Activity Tracking <Armando Machuca DO - Last Filed: 08/03/23 06:03> Resident Involvement: Resident Care Provided Care Provided: OB Delivery
[2023-08-03] MEDS: SIMETHICONE 80 MG CHEW PO SCH (08:54)
[2023-08-03] MEDS: PRENATAL VITAMIN 1 TAB PO SCH (08:55)
[2023-08-03] MEDS: FERROUS SULFATE 325 MG TAB PO SCH (08:55)
[2023-08-03] MEDS: DOCUSATE SODIUM 100 MG CAP PO SCH (08:55)
[2023-08-03] MEDS: INSULIN DETEMIR SC SCH (10:09)
[2023-08-03] MEDS ORDERED: ONDANSETRON 4 MG OD TAB ONE (10:29)
--- NOTE | 2023-08-05 20:22 | Discharge Summary ---
Date of Service August 05, 2023 Admission HPI Per Admitting Provider 23 yo G1 presents for preop for planned primary CS at 38 weeks due to T1DM and suspected LGA. +FM; denies ctx, LOF, VB. Is managed by [facility] endocrine who has her on levemir 70u AM/68u PM, 44u w/ meals. 07/12 had growth US EFW > 98% and AC > 98%. Projected to be over 4500g this week. 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 She is a T1DM with difficulty controlling BG appropriately so recommended for delivery. Most recent growth US projected EFW and AC >98% and over 4500g in this week so was counseled regarding options and desired to proceed with CS. See op report for details. Post-operative course was uncomplicated, pharmacy was consulted to aid in BG management. She was discharged home on POD3 with plan for 1 wk f/u for ryder removal Coding Level of Care Code None Diagnoses Status post delivery Z98.891
== END 2023-08-03 12:51 | disposition home or self-care (01) | DRG 788 ==
LOC: 4S1 05:22 → 4E2 12:18 → EDSTATUS 08-09 07:30

== ENCOUNTER 2025-04-07 07:41 | Inpatient (IN) ==
--- NOTE | 2025-04-06 12:54 | Anesthesiology Consultation ---
Date of Service April 06, 2025 Assessment & Plan (1) Encounter for pre-operative examination: Infectious disease screening: Per assessment on 04/06/25- No known recent infectious disease contacts or current infectious disease symptoms. Chart Review Chart Review: entry level sales associate initiated History Surgery Operation Date: 04/07/25 09:30 Proposed Procedures p Section - Addi Rocha MD, FACOG s with Bilateral Tubal Ligation - Addi Rocha MD, FACOG Height/Weight Height: 5 ft 3 in Weight: 90.718 kg Allergies Allergy/AdvReac Type Severity Reaction Status Date / Time vancomycin Allergy Severe Anaphylaxis, Verified 04/06/25 12:54 throat swelling, rash, itching amoxicillin Allergy Mild Rash Verified 04/06/25 12:25 grass pollen Allergy Mild Congested Verified 04/06/25 12:25 mold Allergy Mild Congestion Verified 04/06/25 12:54 hydromorphone [From Dilaudid] AdvReac Mild Vomiting Verified 04/06/25 12:25 lactase AdvReac Mild Intolerance Verified 04/06/25 12:54 Medications Home Medications Medication Instructions Recorded Confirmed Last Taken blood-glucose,grain receiver,cont #1 ea 02/04/24 04/06/25 Unknown (Dexcom G6 Window Covering Sales Consultant) insulin aspart U-100 100 unit/mL See Rx Instructions subcut 08/17/24 04/06/25 1 Day Ago subcutaneous solution (Novolog USEASDIRECTD #50 mL ~04/05/25 U-100 Insulin aspart) [id number] 1 tab PO DAILY 09/11/24 04/06/25 Unknown [ Plus] aspirin 81 mg tablet,delayed 81 mg PO QPM 11/18/24 04/06/25 1 Day Ago release ~04/05/25 blood-glucose sensor (Dexcom G6 #3 ea 12/11/24 04/06/25 Unknown Sensor device) blood-glucose transmitter (Dexcom #1 ea 12/11/24 04/06/25 Unknown G6 Transmitter device) insulin pump cart,auto,BT,G6/7 #10 ea 12/11/24 04/06/25 Unknown (Omnipod 5 G6-G7 Pods (Gen 5) subcutaneous cartridge) sodium chloride 1,000 mg soluble 1,000 mg PO BID #180 tabs 12/24/24 04/06/25 Unknown tablet pen needle, diabetic 31 gauge x #150 ea 02/05/25 04/06/25 Unknown 5/16" insulin lispro 100 unit/mL See Rx Instructions subcut 03/12/25 04/06/25 1 Day Ago subcutaneous pen (Humalog Kimberly .COMPLEX #15 mL ~04/05/25 (U-100) Insulin) insulin glargine U-300 conc 300 44 unit subcut DAILY 04/06/25 04/06/25 1 Day Ago unit/mL (1.5 mL) subcutaneous pen ~04/05/25 (Toujeo SoloStar U-300 Insulin) lansoprazole 30 mg capsule,delayed 30 mg PO QAM 04/06/25 04/06/25 Unknown release (Prevacid) levothyroxine 88 mcg tablet 88 mcg PO QAM 04/06/25 04/06/25 Unknown Past Medical History Medical History (Updated 04/06/25 @ 13:06 by Kristie Murcia) Acromioclavicular (joint) (ligament) sprain Anxiety and depression Diabetes mellitus type 1 Gastroparesis Headache in History of kidney stones no surgery Hx of migraines IBS (irritable bowel syndrome) Insomnia Lactase deficiency Lactose intolerance LGA (large for gestational age) fetus affecting mother, antepartum Obesity affecting , antepartum Spinal stenosis Thoracic outlet syndrome Ulnar neuropathy Past Family History Family History Grandmother (Maternal) Ovarian cancer, Onset Age: 26 Grandmother (Paternal) Breast cancer Mother Cancer of kidney Hypertension Grandfather (Paternal) Diabetes Other Cancer No family history of adverse response to anesthesia Denies family history of Crohn's disease Colorectal cancer Ulcerative colitis Past Surgical History Surgical History (Updated 04/06/25 @ 13:06 by Kristie Murcia) History of esophagogastroduodenoscopy (EGD) S/P tonsillectomy and adenoidectomy Status post delivery [place] teeth removed Social History Smoking Status: Former smoker tobacco type: cigarettes Smoking cigarettes per day: Quit with first Do You Dip or Chew Tobacco: No Smoking End Date: 2021 Hx Alcohol Use: No alcohol intake frequency: a few times a month Hx Substance Use: No substance use type: does not use Testing Electrocardiogram Date: 03/19/25 Findings: + NSR @ (81) Chest X-Ray Date: 11/18/24 Impression: Normal chest radiograph Other Testing 2 day Cardiac event monitor Date: 12/16/24 Sinus rhythm. Average HR 89bpm. Min HR 70bpm. Max HR 133bpm. Very rare atrial and ventricular ectopy without significant atrial or ventricular arrhythmias. No significant bradycardia, pausea or heart block. No a. fib. Impression: "Normal Holter monitor without significant arrhythmia.. No symptoms reported.."
[~2025-04-07 07:41] MED LIST changes: -BCPILLS PO; +DEXAMETHASONE SOD INJ 4 MG/ML VIAL ONE; -FLUO10CA48 PO; -INSPMPNVLG; +MoRPHine SULFATE PF 1 MG/ML 10 ML AMP/VIAL ONE; +ONDANSETRON INJ 2 MG/ML 2 ML VIAL ONE; +OXYTOCIN 10 UNITS/ML VIAL ONE
[2025-04-07] MEDS: LACTATED RINGER'S 1,000 ML IV SCH ×3 (08:20→21:30)
[2025-04-07] MEDS ORDERED: SODIUM CHLORIDE 0.9% 100 ML IV PRN (08:55)
[2025-04-07 08:59] LABS: Hematocrit (blood only) 37.2 % (37.0-47.0); Hemoglobin 11.6 g/dl (12.0-16.0)
[2025-04-07] MEDS: ACETAMINOPHEN 500 MG TAB PO SCH (09:03)
[2025-04-07 09:19] LABS: Mean Corpuscular Hemoglobin 23.2 pg (25.0-34.0); Mean Corpuscular Volume 74.3 fL (80.0-100.0); Platelet Count 86 K/uL (130-400); RDW Standard Deviation 38.9 fL (36.4-46.3); Red Blood Count 5.01 M/uL (4.20-5.40); White Blood Count 6.88 K/ul (4.8-10.8)
--- NOTE | 2025-04-07 09:23 | History & Physical Report ---
Date of Service April 07, 2025 Assessment & Plan (1) Diabetes mellitus affecting : Plan: Repeat section, and bilateral salpingectomy The patient was counseled to the nature of the procedure including alternatives such as labor. Risks were discussed including bleeding infection injury to bowel bladder ureter vessels and even baby. The risks of internal organ injury were discussed as being higher with prior sections. Deep Vein Thrombosis, pulmonary embolus and breakdown of the incision discussed. Deep vein thrombosis pulmonary embolus hernia and failure of the incision to heal were discussed Patient verbalized understanding of this and was given ample time to ask questions Note patient wishes tubal ligation as well we discussed bilateral salpingectomy be discussed this is not reversible we discussed the issues of regret we dis cussed failure rates of tubal ligations as well as the are not 100% We discussed additional risk to her with her diabetes being poorly controlled increased risk of infection and incision breakdown we will use a ryder dressing Ancef dosed appropriately reviewed in depth we are also at 37 weeks because of poor control this has been recommended by maternal- medicine as my colleagues had talked to them last week and scheduled the section on my day this was the recommendation from maternal- medicine Admission and Anticipated Discharge Date Admission Date: April 07, 2025 History of Present Illness Primary Care Provider: Marilyn Rivera MD FANNY Calculator Estimated Delivery Date Method Current WG Current Estimate 04/28/25 LMP (Uncertain) 36w 6d Other Estimates 04/25/25 Ultrasound #1 37w 2d and Delivery Plans Obesity (BMI between 35-39 @ beginning of ) *Growth US @ 32 wks *Weekly NSTs @ 36wks DM Protocol - Non compliant with persistently significantly elevated blood sugars noted *Baby ASA daily, start 12-28wks, continue until del *Ophthalmology consult - saw Jun 2024 *Dietary consult - sees endo *Qmonthly urine cultures * Echo [id number]- 12/29/24 *Twice weekly NST's @ 32 or 34wks *Serial Growth US starting 28wks *Baseline 24hr Urine and Q trimester *EKG (Cardio [id number]) *Deliver at 37 weeks per MFM at [facility] for severe macrosomia and grossly abnormal blood sugars Low lying placenta at 20 weeks will recheck with monthly growth scan Hypercholesterolemia Stopped Statin at +HPT Prior Schedule @ 28wk. C/S WITH TUBAL SCHEDULED FOR 04/23/[address] WILKINS AND DR. VILLATORO ASSIST C/S WITH TUBAL RESCHEDULED FOR 04/07/[address] DIANE AND DR. VILLATORO ASSIST Hx of LGA GBS Positive in Urine *Treat in Labor Hepatitis B Non Immune *Recommend Hepatitis B Vaccine Allergies Allergy/AdvReac Type Severity Reaction Status Date / Time vancomycin Allergy Severe Anaphylaxis, Verified 04/06/25 12:54 throat swelling, rash, itching amoxicillin Allergy Mild Rash Verified 04/06/25 12:25 grass pollen Allergy Mild Congested Verified 04/06/25 12:25 mold Allergy Mild Congestion Verified 04/06/25 12:54 hydromorphone [From Dilaudid] AdvReac Mild Vomiting Verified 04/06/25 12: lactase AdvReac Mild Intolerance Verified 04/06/25 12:54 Home Medications Medication Instructions Recorded Confirmed Type blood-glucose,flatcar whacker,cont #1 ea 02/04/24 04/06/25 Rx (Dexcom G6 Material Engineer) insulin aspart U-100 100 unit/mL See Rx Instructions subcut 08/17/24 04/06/25 Rx subcutaneous solution (Novolog USEASDIRECTD #50 mL U-100 Insulin aspart) [id number] 1 tab PO DAILY 09/11/24 04/07/25 History [ Plus] aspirin 81 mg tablet,delayed 81 mg PO QPM 11/18/24 04/07/25 History release blood-glucose sensor (Dexcom G6 #3 ea 12/11/24 04/06/25 Rx Sensor device) blood-glucose transmitter (Dexcom #1 ea 12/11/24 04/06/25 Rx G6 Transmitter device) insulin pump cart,auto,BT,G6/7 #10 ea 12/11/24 04/06/25 Rx (Omnipod 5 G6-G7 Pods (Gen 5) subcutaneous cartridge) sodium chloride 1,000 mg soluble 1,000 mg PO BID #180 tabs 12/24/24 04/06/25 Rx tablet pen needle, diabetic 31 gauge x #150 ea 02/05/25 04/06/25 Rx 5/16" insulin lispro 100 unit/mL See Rx Instructions subcut 03/12/25 04/06/25 Rx subcutaneous pen (Humalog KwikPen .COMPLEX #15 mL (U-100) Insulin) insulin glargine U-300 conc 300 44 unit subcut DAILY 04/06/25 04/07/25 History unit/mL (1.5 mL) subcutaneous pen (Toujeo SoloStar U-300 Insulin) lansoprazole 30 mg capsule,delayed 30 mg PO QAM 04/06/25 04/06/25 History release (Prevacid) levothyroxine 88 mcg tablet 88 mcg PO QAM 04/06/25 04/07/25 History Patient History Medical History Lactose intolerance History of kidney stones no surgery Gastroparesis Diabetes mellitus type 1 Anxiety and depression LGA (large for gestational age) fetus affecting mother, antepartum Obesity affecting , antepartum Headache in Ulnar neuropathy Thoracic outlet syndrome IBS (irritable bowel syndrome) Acromioclavicular (joint) (ligament) sprain Spinal stenosis Lactase deficiency Insomnia Hx of migraines Surgical History [place] teeth removed Status post delivery History of esophagogastroduodenoscopy (EGD) S/P tonsillectomy and adenoidectomy Family History Grandmother (Maternal) Ovarian cancer, Onset Age: 26 Grandmother (Paternal) Breast cancer Mother Cancer of kidney Hypertension Grandfather (Paternal) Diabetes Other Cancer No family history of adverse response to anesthesia Denies family history of Crohn's disease Colorectal cancer Ulcerative colitis Social History (Updated 04/07/25 @ 08:22 by Mandie Machado RN) Smoking Status: Former smoker Tobacco Type: Cigarettes Age Started Using Tobacco: 17; Age Quit Using Tobacco: 22; Cigarettes Per Day: Quit with first ; Smoking End Date: 2021; Second Hand Exposure: No; Do You Dip or Chew Tobacco: No; Hx Alcohol Use: No Hx Substance Use: No Preferred Language: Arabic Communication Ability: Effective Business Continuity Coordinator Required: No Beliefs That Will Affect Care: None marital status: Single marital status details: Chemo Taylor (26) [phone] Current Living Situation: Family Current Living Situation Comment: Lives with FOB and son, 1 dog current occupational status: unemployed 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 How many Children do You have: 1 Other Information That Helps Us Care for You: No Feels Safe at Home: Yes Safety Concerns: Feels Safe At This Time Childhood Exposure to Second-Hand Smoke: Yes Diet: regular caffeine: No Dental Care, Regularly: Yes Physical Activity Frequency: Daily Seatbelt Use: always Sunscreen Use: Yes Gender Identity: Female Assistive Devices: Glasses Physical Exam Constitutional: WD/WN, vitals as above well developed and well nourished Respiratory: normal respiratory effort, lungs clear to auscultation normal respiratory effort Cardiovascular: RRR, no murmur, no edema Gastrointestinal (Abdomen): normal bowel sounds, soft, nontender, no hepatosplenomegaly Results & Data Vital Signs (Past 12 Hours) Vital Signs Temp Pulse BP 04/07/25 08:35 83 128/79 04/07/25 08:28 97.7 F Coding Level of Care Code None Diagnoses Diabetes mellitus affecting in third trimester O24.913 Trimester: third trimester (1) Diabetes mellitus affecting Trimester: third trimester Qualified Code(s): O24.913 - Unspecified diabetes mellitus in , third trimester
[2025-04-07] MEDS: CITRIC ACID/SODIUM CITRATE 15 ML UDC PO SCH (09:40)
[2025-04-07] MEDS: ceFAZolin 3000MG 3,000 MG/72.5 ML BAG IV SCH (10:33)
[2025-04-07] MEDS ORDERED: GLYCOPYRROLATE 0.2 MG/ML VIAL ONE (10:58)
[2025-04-07] MEDS ORDERED: ONDANSETRON INJ 2 MG/ML 2 ML VIAL IV PRN (11:18)
[2025-04-07] MEDS ORDERED: NALOXONE HCL 0.08 MG in SYRINGE 1.8 ML IV PRN (11:18)
[2025-04-07] MEDS ORDERED: NALOXONE HCL 0.4 MG/1 ML VIAL/CARP IV PRN (11:18)
[2025-04-07] MEDS ORDERED: LACTATED RINGER'S 500 ML IV PRN (11:18)
[2025-04-07] MEDS ORDERED: NALOXONE HCL 1 MG in SODIUM CHLORIDE 0.9% 1,000 ML IV PRN (11:18)
[2025-04-07] MEDS ORDERED: HYDROmorphone INJ 0.5 MG/0.5 ML SYR IV PRN (11:18)
[2025-04-07] MEDS ORDERED: PROMETHAZINE 6.25 MG/50.25 ML BAG IV PRN (11:18)
[2025-04-07] MEDS ORDERED: NO NARCOTICS OR SEDATIVES SCH (11:30)
[2025-04-07] MEDS ORDERED: DC INTRASPINAL MORPHINE SCH (11:30)
[2025-04-07] MEDS ORDERED: ONDANSETRON INJ 2 MG/ML 2 ML VIAL ONE (11:32)
[2025-04-07 11:47] LABS: Base Excess Cord Arterial Bld -6.2 mEq/L (-9-1.8); CO2 Cord Arterial Blood 75 mmHg (39.1-73.5); HCO3 Cord Arterial Blood 25 mmol/L (19.7-28.5); Oxygen Sat Cord Arterial Blood < 60.0 % (<60); PO2 Cord Arterial Blood < 20 mmHg (4.1-31.7); pH Cord Arterial Blood 7.13 (7.1-7.38)
[2025-04-07 11:50] LABS: Base Excess Cord Venous Blood -6.6 mEq/L (-7.7-1.9); Cord Venous Blood PO2 21 mmHg (14.1-43.3); O2 Saturation Cord Venous Bld < 60.0 % (<68)
--- NOTE | 2025-04-07 11:58 | Operative Report ---
Post Operative Report Pre & Post Diagnosis Operation Date: 04/07/25 09:30 Pre-Op Diagnosis: History of Section, Request for Sterilization Post-Op Diagnosis: Same; Delivery of a live male child at 1112 I identified the patient and participated in the time-out.: Yes Procedure Operation Date: 04/07/25 09:30 Actual Procedures p Section(Bilateral) - Addi Rocha MD, FACOG s with Bilateral Tubal Ligation(Bilateral) - Addi Rocha MD, FACOG Surgeon Addi Rocha MD, FACOG Programmer Business RN Quantitative Blood Loss (QBL) 574 Findings Consistent with Post-Op Diagnosis Specimens Cord blood Cord gases bilateral fallopian tubes Description of Procedure Regional anesthetic had been given by anesthesia patient was prepped and draped with a leftward tilt preoperative antibiotics had been given in appropriate timing by anesthesiology. Once the prep was allowed to fully dry timeout was performed. Pickups with teeth were used to test the incision area was found to be adequate for incision as the patient did not feel sharp pain. Scalpel was used to make a Pfannenstiel incision on the lower abdomen. We then cut through the subcutaneous fat down to the level of the anterior rectus sheath fascia this was cut in the midline and then extended laterally with the curved Zamora scissors. At this stage we then placed 2 Arlin clamps on the anterior aspect of the fascia. Using the curved Zamora's we are able to dissect the fascia superiorly away from the rectus muscles. Care was taken to maintain hemostasis. Arlin clamps were then placed to the inferior aspect of the anterior sheath of the fascia. Fascia was then dissected away from the rectus muscles inferiorly towards the pubic bone. A Arlin was then placed in the midline both inferiorly and superiorly. This was to allow exposure by retraction rectus muscles were in the midline with were then able to cut through the peritoneum and then enter the peritoneal cavity. Opening was enlarged to allow exposure of the peritoneal cavity both superiorly and inferiorly. Once adequate space was obtained a bladder retractor was placed to expose the lower segment Metzenbaums were used to dissect the bladder flap inferiorly away from the uterus. This was done sharply bladder retractor was then repositioned to expose the lower segment of the uterus Fresh scalpel was used to make a low transverse incision on the uterus. Uterus was then entered bluntly with the operators finger, membranes ruptured and the opening was enlarged using the operators fingers bluntly pulling superiorly and inferiorly to allow exposure. Baby was delivered by first flexion of the head elevation of the head out of the pelvis and then pressure by the assistant clinical director on the maternal abdomen. Baby's head was then delivered mouth and then nares were suctioned and then using gentle traction the baby was fully delivered. Live vigorous infant. Fluid was clear cord clamped and cut cord gases obtained cord blood obtained baby handed to pediatrics. Placenta removed was removed with traction we ensure the entire placenta was removed with a moist lap sponge into the uterus Uterus was then exteriorized. IV Pitocin had been started by anesthesia tone improved there were no extensions the uterus was then closed using 0 Monocryl in a 2 layer closure the first layer closed in a running locked fashion from left to right and then a second closure from left to right in a running nonlocked fashion. At this stage hemostasis was excellent. I confirmed the patient wishes tubal ligation and she confirmed verbally using a Shilpa I grabbed the right fallopian tube using the LigaSure we then coagulated and cut the fallopian tube attachments following along to the isthmic portion of the tube tube was then transected with the LigaSure close to the uterus hemostasis was excellent the exact same process was repeated on the right side of note when the uterus was placed back in the peritoneal cavity both fallopian tube areas were inspected and found to be hemostatic Uterus was placed back in the peritoneal cavity with suction irrigation out and inspection of the uterus at this stage revealed excellent hemostasis Retractors were removed urine color was clear at this stage of the case we inspected the rectus muscles they were hemostatic fascia was closed with 0 Vicryl subcutaneous fat was irrigated and closed with 3-0 Vicryl skin closed with 4-0 subcuticular Monocryl Of note the adnexa and uterus were normal and should be noted the baby was large but delivered without trauma or excessive force I attest to the content of the Intraoperative Record and any orders documented therein. Any exceptions are noted below. OB Procedure Charges 80835
--- NOTE | 2025-04-07 12:26 | Obstetrical Progress Note ---
Date of Service April 07, 2025 Assessment & Plan Admission and Anticipated Discharge Date Admission Date: April 07, 2025 Subjective Update I was called back to the operating room after completing documentation on the patient she had a hemorrhage with passing some clots and an additional bleeding I came in with gown and gloves examined the patient was able to do bimanual internal uterine exam and there were significant clots in the uterus the uterine tone was very firm I was able to remove the clots using manual technique and actually a empty sponge stick to grasp of the clots manually directing this once I felt all the clots were out a Trang device was placed in the usual fashion 80 cc of fluid around the cervical balloon patient stable we will watch closely Results & Data Vital Signs (Past 12 Hours) Vital Signs Temp Pulse BP 04/07/25 08:35 83 128/79 04/07/25 08:28 97.7 F PG Care Time/CCT Total # of Minutes Spent Total Time Spent with Patient: Total time spent is greater than 50% in coordination of care (as documented) at patient's floor/unit and/or counseling patient: Coding Level of Care Code None
[2025-04-07] MEDS ORDERED: OXYTOCIN 10 UNITS/ML VIAL ONE ×2 (12:42→12:43)
[2025-04-07] MEDS ORDERED: MAGNESIUM HYDROXIDE SUSP 30 ML UDC PO PRN (13:26)
[2025-04-07] MEDS ORDERED: HYDROCORTISONE ACETATE 25 MG SUPP PR PRN (13:26)
[2025-04-07] MEDS ORDERED: CALCIUM CARBONATE 500 MG CHEWABLE TAB PO PRN (13:26)
[2025-04-07] MEDS ORDERED: BENZOCAINE 20% SPRY 85 APPLN/85 GM CAN EXT PRN (13:26)
[2025-04-07] MEDS ORDERED: SENNA 8.6 MG TAB PO PRN (13:26)
[2025-04-07] MEDS: KETOROLAC 30 MG/ML VIAL IV SCH (13:39)
[2025-04-07] MEDS: SIMETHICONE 80 MG CHEW PO SCH (13:40)
[2025-04-07] MEDS: OXYTOCIN 20 UNITS/LR 1,002 ML IV SCH (13:43)
[2025-04-07] MEDS: SODIUM CHLORIDE 0.9% 1,000 ML IV SCH (13:45)
[2025-04-07] MEDS: MoRPHine SULFATE PF 1 MG/ML 10 ML AMP/VIAL INT SPINAL ONE (13:45)
--- NOTE | 2025-04-07 13:48 | Anesthesiology Progress Note ---
Date of Service April 07, 2025 Anesthesia Post Procedure Vital Signs Vital Signs: Temp Pulse Resp BP Pulse Ox 04/07/25 13:47 56 L 109/62 04/07/25 13:44 53 L 99 04/07/25 13:39 70 99 04/07/25 13:36 54 L 106/59 L 04/07/25 13:34 70 99 04/07/25 13:29 62 99 04/07/25 13:27 62 116/55 L 04/07/25 13:24 69 99 04/07/25 13:19 55 L 99 04/07/25 13:18 62 119/53 L 04/07/25 13:14 72 97 04/07/25 13:09 64 99 04/07/25 13:07 110/60 04/07/25 13:04 64 97 04/07/25 12:59 55 L 99 04/07/25 12:57 60 20 101/56 L 04/07/25 12:57 60 101/56 L 04/07/25 08:35 83 128/79 04/07/25 08:28 97.7 F Pain Intensity Abdomen: Pain Intensity: 2 Transfer of Care Handoff Completed per policy Notes Mental Status: alert / awake / arousable and participated in evaluation Patient Amnestic to Procedure: Yes Nausea / Vomiting: adequately controlled Pain: adequately controlled Airway Patency, RR, SpO2: stable & adequate BP & HR: stable & adequate Hydration State: stable & adequate Neuraxial Anesthesia: was administered and sensory block is resolving Anesthetic Complications: no major complications apparent and Pt Satisfied with anesthetic care
[2025-04-07] MEDS: diphenhydrAMINE 50 MG/ML VIAL IV PRN (13:55)
[2025-04-07] MEDS: NALBUPHINE HCL INJ 10 MG/ML AMP IV PRN (14:59)
--- NOTE | 2025-04-07 15:49 | Obstetrical Progress Note ---
Date of Service April 07, 2025 Assessment & Plan Admission and Anticipated Discharge Date Admission Date: April 07, 2025 Subjective S/p follow-up documentation the total blood loss for delivery and hemorrhage was 1652 mL the jaded device was placed there is been minimal bleeding since the uterus is firm we will decrease suction 1630 today and then remove the device as long as uterus is firm and minimal bleeding patient appears stable was process was explained to partner and her as well Results & Data Vital Signs (Past 12 Hours) Vital Signs Temp Pulse Resp BP Pulse Ox 04/07/25 15:47 68 04/07/25 15:47 119/51 L 04/07/25 15:44 91 04/07/25 15:44 81 04/07/25 15:39 99 04/07/25 15:39 64 04/07/25 15:36 66 04/07/25 15:36 121/76 04/07/25 15:34 100 04/07/25 15:34 64 04/07/25 15:29 98 04/07/25 15:29 60 04/07/25 15:27 54 L 04/07/25 15:27 116/75 04/07/25 15:24 99 04/07/25 15:24 55 L 04/07/25 15:19 86 97 04/07/25 15:16 83 137/74 04/07/25 15:14 81 98 04/07/25 15:09 57 L 98 04/07/25 15:06 53 L 126/68 04/07/25 15:04 58 L 98 04/07/25 14:59 59 L 98 04/07/25 14:57 97.7 F 16 04/07/25 14:56 56 L 124/59 L 04/07/25 14:54 86 99 04/07/25 14:49 69 98 04/07/25 14:47 55 L 121/62 04/07/25 14:44 56 L 98 04/07/25 14:39 79 98 04/07/25 14:36 70 115/64 04/07/25 14:34 57 L 98 04/07/25 14:29 84 99 04/07/25 14:26 60 116/61 04/07/25 14:25 20 04/07/25 14:24 54 L 98 04/07/25 14:19 76 98 04/07/25 14:16 61 108/57 L 04/07/25 14:14 81 98 04/07/25 14:10 85 123/57 L 04/07/25 14:09 85 98 04/07/25 14:04 77 99 04/07/25 13:59 66 98 04/07/25 13:57 97.5 F L 20 04/07/25 13:57 97.5 F L 20 04/07/25 13:57 65 114/63 04/07/25 13:54 71 99 04/07/25 13:49 76 98 04/07/25 13:47 20 04/07/25 13:47 56 L 109/62 04/07/25 13:44 53 L 99 04/07/25 13:39 70 99 04/07/25 13:37 20 04/07/25 13:36 54 L 106/59 L 04/07/25 13:34 70 99 04/07/25 13:29 62 99 04/07/25 13:27 20 04/07/25 13:27 62 116/55 L 04/07/25 13:24 69 99 04/07/25 13:19 55 L 99 04/07/25 13:18 62 119/53 L 04/07/25 13:14 72 97 04/07/25 13:09 64 99 04/07/25 13:07 20 04/07/25 13:07 110/60 04/07/25 13:04 64 97 04/07/25 12:59 55 L 99 04/07/25 12:57 60 20 101/56 L 04/07/25 12:57 60 101/56 L 04/07/25 08:35 83 128/79 04/07/25 08:28 97.7 F PG Care Time/CCT Total # of Minutes Spent Total Time Spent with Patient: Total time spent is greater than 50% in coordination of care (as documented) at patient's floor/unit and/or counseling patient: Coding Level of Care Code None
[2025-04-07] MEDS ORDERED: PHARMACY GLYCEMIC MGMT CONSULT PRN (17:53)
[2025-04-07] MEDS: LACTATED RINGER'S 1,000 ML IV ONE (18:20)
[2025-04-07] MEDS: DIPHTHER/TETAN/PERTUS Vaccine (Tdap, Adol/Adult) 0.5mL IM ONE (18:23)
[2025-04-07 19:07] LABS: Hematocrit (blood only) 26.5 % (37.0-47.0); Hemoglobin 8.2 g/dl (12.0-16.0)
[2025-04-07 19:20] LABS: Mean Corpuscular Hemoglobin 22.8 pg (25.0-34.0); Mean Corpuscular Volume 73.8 fL (80.0-100.0); Platelet Count 67 K/uL (130-400); RDW Standard Deviation 38.9 fL (36.4-46.3); Red Blood Count 3.59 M/uL (4.20-5.40); White Blood Count 8.28 K/ul (4.8-10.8)
[2025-04-07] MEDS: ACETAMINOPHEN 325 MG TAB PO SCH (19:36)
[2025-04-07] MEDS ORDERED: LANTUS PER UNIT CHARGE SC SCH (21:00)
[2025-04-07] MEDS ORDERED: INSULIN ASPART PER UNIT CHARGE SC SCH (21:00)
[2025-04-07] MEDS: DOCUSATE SODIUM 100 MG CAP PO SCH (21:16)
[2025-04-07] MEDS: TOUJEO SOLOSTAR SQ SCH (22:30)
[2025-04-08] MEDS ORDERED: ONDANSETRON INJ 2 MG/ML 2 ML VIAL IV PRN (05:19)
[2025-04-08] MEDS ORDERED: diphenhydrAMINE 50 MG/ML VIAL IV PRN (05:19)
[2025-04-08] MEDS ORDERED: PROMETHAZINE 12.5 MG/50.5 ML BAG IV PRN (05:19)
[2025-04-08] MEDS ORDERED: HYDROmorphone INJ 0.5 MG/0.5 ML SYR IV PRN (05:19)
--- NOTE | 2025-04-08 05:44 | Obstetrical Progress Note ---
Date of Service April 08, 2025 Assessment & Plan (1) care and examination: Plan: Patient is currently stable. Will continue to monitor. Admission and Anticipated Discharge Date Admission Date: April 07, 2025 Supervising Physician Co-Signing Physician Notes Resident Physician Supervision Note: I was present with Dr. Levin during the history and exam. I discussed the case with the resident and agree with the findings and plan as documented in the note. Any exceptions or clarifications are listed here: [None] Documented By: Addi Rocha MD, FACOG Subjective 25 yo post- day 1 s/p [] w/ FERN and loss of 1652ml of blood Ambulation: ambulating normally Voiding: Still has cath in. Passing Gas:: Burping but not producing flatulence Diet Tolerance:: regular diet Feeding Type:: bottle feeding Current Pain Level:Improved Patient reports that she is discharging milk from her breasts. Patient still has a slight headache but it has greatly improved since yesterday. Resting comfortably this AM in NAD. Denies fevers/chills, AGEE, CP/palp, SOB/cough/wheeze, N/V/D, LE pain/swelling, UTI Sx. Review of Systems Review of Systems: as per subjective HPI Physical Exam Constitutional: WD/WN, vitals as above Respiratory: normal respiratory effort, lungs clear to auscultation Cardiovascular: Rate/Rhythm: regular rate and regular rhythm Heart Sounds: normal S1 and normal S2; no murmur Extremities: no calf tenderness Some swelling in LE Gastrointestinal (Abdomen): Percussion/Palpation: + abdomen tender (in RLQ near surgical incision) Genitourinary: Uterus was 2cm above umbilicus Results & Data Vital Signs (Past 12 Hours) Vital Signs Temp Pulse Pulse Resp BP BP Pulse Ox 04/08/25 04:00 18 98 04/08/25 03:00 16 100 04/08/25 02:00 16 95 04/08/25 01:30 16 100 04/08/25 01:30 36.6 C 63 16 108/70 100 04/08/25 01:00 16 96 04/08/25 00:00 16 100 04/07/25 23:00 16 98 04/07/25 22:00 18 100 04/07/25 21:00 18 100 04/07/25 21:00 08/06/25 21:00 36.5 C 65 18 129/79 100 04/07/25 19:35 99 04/07/25 19:35 67 04/07/25 19:30 100 04/07/25 19:30 67 04/07/25 19:25 100 04/07/25 19:25 70 04/07/25 19:20 100 04/07/25 19:20 76 04/07/25 19:15 36.4 C L 67 18 99 04/07/25 19:15 100 04/07/25 19:15 78 04/07/25 19:10 100 04/07/25 19:10 73 04/07/25 19:05 100 04/07/25 19:05 89 04/07/25 19:00 99 04/07/25 19:00 65 04/07/25 18:55 100 04/07/25 18:55 61 04/07/25 18:54 67 04/07/25 18:54 126/65 04/07/25 18:50 100 04/07/25 18:50 91 H 04/07/25 18:45 100 04/07/25 18:45 66 04/07/25 18:40 100 04/07/25 18:40 72 04/07/25 18:35 100 04/07/25 18:35 85 04/07/25 18:30 100 04/07/25 18:30 104 H 04/07/25 18:25 99 04/07/25 18:25 75 04/07/25 18:20 100 04/07/25 18:20 71 04/07/25 18:15 100 04/07/25 18:15 83 04/07/25 18:04 100 04/07/25 18:04 68 04/07/25 17:59 100 04/07/25 17:59 60 04/07/25 17:55 36.5 C 20 04/07/25 17:54 100 04/07/25 17:54 73 04/07/25 17:49 100 04/07/25 17:49 71 O2 Del Method 04/08/25 04:00 04/08/25 03:00 04/08/25 02:00 04/08/25 01:30 04/08/25 01:30 Room Air 04/08/25 01:00 04/08/25 00:00 04/07/25 23:00 04/07/25 22:00 04/07/25 21:00 04/07/25 21:00 Room Air 04/07/25 21:00 Room Air 04/07/25 19:35 04/07/25 19:35 04/07/25 19:30 04/07/25 19:30 04/07/25 19:25 04/07/25 19:25 04/07/25 19:20 04/07/25 19:20 04/07/25 19:15 04/07/25 19:15 04/07/25 19:15 04/07/25 19:10 04/07/25 19:10 04/07/25 19:05 04/07/25 19:05 04/07/25 19:00 04/07/25 19:00 04/07/25 18:55 04/07/25 18:55 04/07/25 18:54 04/07/25 18:54 04/07/25 18:50 04/07/25 18:50 04/07/25 18:45 04/07/25 18:45 04/07/25 18:40 04/07/25 18:40 04/07/25 18:35 04/07/25 18:35 04/07/25 18:30 04/07/25 18:30 04/07/25 18:25 04/07/25 18:25 04/07/25 18:20 04/07/25 18:20 04/07/25 18:15 04/07/25 18:15 04/07/25 18:04 04/07/25 18:04 04/07/25 17:59 04/07/25 17:59 04/07/25 17:55 04/07/25 17:54 04/07/25 17:54 04/07/25 17:49 04/07/25 17:49
[2025-04-08] MEDS: LEVOTHYROXINE SODIUM 88 MCG TABLET PO SCH (06:02)
[2025-04-08 07:13] LABS: Hematocrit (blood only) 25.3 % (37.0-47.0); Hemoglobin 7.9 g/dl (12.0-16.0); Immature Granulocytes # (auto) 0.04 K/uL (0.01-0.20); Immature Granulocytes % (auto) 0.5 %; Mean Corpuscular Hemoglobin 23.5 pg (25.0-34.0); Mean Corpuscular Volume 75.3 fL (80.0-100.0); Platelet Count 76 K/uL (130-400); RDW Standard Deviation 39.5 fL (36.4-46.3); Red Blood Count 3.36 M/uL (4.20-5.40); White Blood Count 8.73 K/ul (4.8-10.8)
[2025-04-08 07:16] LABS: RBC Morphology Unremarkable
[2025-04-08] MEDS: FERROUS SULFATE 325 MG TAB PO SCH (07:53)
[2025-04-08] MEDS: PRENATAL VITAMIN 1 TAB PO SCH (07:53)
[2025-04-08 07:55] LABS: Hemoglobin A1C 9.4 % (4.5-5.6)
[2025-04-08] MEDS: diphenhydrAMINE Capsule 25 MG CAP PO PRN (08:03)
[2025-04-08] MEDS: INSULIN ASPART 100 UNITS/ML 3 ML PEN SC SCH (08:32)
[2025-04-08] MEDS: IBUPROFEN 600 MG TAB PO SCH (13:03)
[2025-04-08] MEDS ORDERED: KETOROLAC 30 MG/ML VIAL IV PRN (13:30)
--- NOTE | 2025-04-08 14:46 | Pharmacy Report ---
Pharmacy Glycemic Short Note 2 - Date of Service April 08, 2025 - Glycemic Short BSG Results (Last 24 hours): 04/07/25 04/07/25 04/08/25 18:37 21:08 08:05 POC Glucose 134 H 111 H 159 H 04/08/25 12:25 POC Glucose 166 H OUTPATIENT ANTIDIABETIC REGIMEN: * Toujeo 44 units SQ daily * Humalog scale with meals (CF 25, CR 6)--up to 50 units/day HbA1c: 9.4% on 04/08/25 ASSESSMENT: * Esme is a 25 year old female who was admitted last evening for a repeat section. She is reportedly a type 1 diabetic (diagnosed at age 16). Pharmacy has been consulted for glycemic management .. * BSG on admit yesterday was 90mg/dL (Toujeo last given the AM of 04/06). Postop BSG was 134mg/dL. It is expected that since she is her insulin needs will change(likely decrease) so a conservative weight based bolus insulin regimen with a stress between 1 and 2 was started. * She reportedly wanted to continue to use her own Toujeo rather than Lantus, so a reduced dose of 10 units of Toujeo x 1 was ordered to be given last evening. * Fasting BSG was 159mg/dL this morning. Bolus insulin regimen will be continued as ordered and Toujeo has been increased to 50% of her home dose. PLAN FOR INPATIENT GLYCEMIC CONTROL: * Hold outpatient diabetes medications * Basal insulin * Toujeo 22 units SQ HS * Bolus insulin * NovoLog per scale ACHS or Q6hrs while NPO * Goal Range: Low 120 mg/dL - High 160 mg/dL * Correction Factor: 35 mg/dL/unit * Nutritional / Prandial insulin per carb ratio of 1 unit per 12 grams CHO consumed
[2025-04-09 06:30] LABS: Hematocrit (blood only) 23.2 % (37.0-47.0); Hemoglobin 7.2 g/dl (12.0-16.0)
--- NOTE | 2025-04-09 06:44 | Obstetrical Progress Note ---
Date of Service April 09, 2025 Assessment & Plan (1) care and examination: Plan: Patient post status PP day 2 with complication of hemorrhage requiring a FERN. Patient is currently stable. Will discharge today or tomorrow. (2) Type 1 diabetes mellitus: Plan: Patient denied having the hospital to administer insulin for her. Patient desired to administer her home insulin herself. Admission and Anticipated Discharge Date Admission Date: April 07, 2025 Supervising Physician Co-Signing Physician Notes Resident Physician Supervision Note: I interviewed and examined the patient. Discussed with Dr. Dr. Levin and agree with findings and plan as documented in the note. Any exceptions or clarifications are listed here: Overall doing well. Her biggest complaint is her leg swelling--+2 to knee, pitting, nontender. Notes pain in incision and belly controlled with oral pain meds. Having referred pain to her right shoulder, likely from trapped air. Encouraged ambulation. Bottle feeding. Desires to stay today. Documented By: Joanna Alvarado MD, FACOG Subjective 25 yo post- day 2 s/p [] w/ PPH needing a FERN and loss of 1652ml of blood. Ambulation: ambulating normally. Though says her feet are swollen making it difficult for her to walk. Voiding: Voiding normally Passing Gas:: Not producing flatulence Diet Tolerance:: regular diet. She also reports that the tip of her tongue and her throat are sore making it difficult to eat. Feeding Type:: bottle feeding Current Pain Level:Improved. 5/10 pain. Patient is having trouble passing gas. Patient reports that she is discharging milk from her breasts. Patient still has a headache but has a history of migraines. She also reports shoulder pain was told by nurse it could be from gas. Resting comfortably this AM in NAD. Denies fevers/chills, AGEE, CP/palp, SOB/cough/wheeze, N/V/D, LE pain/swelling, UTI Sx. Review of Systems Review of Systems: as per subjective HPI Physical Exam Constitutional: WD/WN, vitals as above ENMT: Mouth: no oropharynx abnormality, no oral mucosal abnormality, no tongue abnormality and oral mucous membranes not dry Respiratory: normal respiratory effort, lungs clear to auscultation Cardiovascular: Rate/Rhythm: regular rate and regular rhythm Heart Sounds: normal S1 and normal S2; no murmur Extremities: + calf tenderness (b/l lower calf tenderness) and + pedal edema Gastrointestinal (Abdomen): Percussion/Palpation: + abdomen tender (throughout all quadrants) and abdomen soft Skin: no rashes, warm and dry Genitourinary: uterus was 2cm above umbilicus and firm Results & Data Vital Signs (Past 12 Hours) Vital Signs Temp Pulse Resp BP Pulse Ox O2 Del Method 04/08/25 23:30 36.5 C 63 16 111/72 98 Room Air 04/08/25 19:30 36.5 C 77 16 116/81 99 Room Air Laboratory Results 04/09/25 04/08/25 04/08/25 Range/Units 06:01 21:12 17:05 Hgb 7.2 L (12.0-16.0) g/dl Hct 23.2 L (37.0-47.0) % POC Glucose 235 H 245 H (70-99) mg/dl 04/08/25 04/08/25 Range/Units 12:25 08:05 Hgb (12.0-16.0) g/dl Hct (37.0-47.0) % POC Glucose 166 H 159 H (70-99) mg/dl (2) Type 1 diabetes mellitus Diabetes mellitus complication status: with other specified complication Qualified Code(s): E10.69 - Type 1 diabetes mellitus with other specified complication
[2025-04-09] MEDS: IBUPROFEN 600 MG TAB PO PRN (16:28)
[2025-04-09 17:31] VITALS: TEMP 98.1; O2SAT 100
[2025-04-09] MEDS: ACETAMINOPHEN 325 MG TAB PO PRN (21:14)
[2025-04-09 23:04] VITALS: RESP 18
--- NOTE | 2025-04-10 05:59 | Obstetrical Progress Note ---
Date of Service April 10, 2025 Assessment & Plan (1) care and examination: Plan: Patient post status PP day 3 with complication of hemorrhage requiring a FERN. Patient is currently stable. Will discharge today. (2) Type 1 diabetes mellitus: Plan: Patient denied having the hospital to administer insulin for her. Patient desired to administer her home insulin herself. Admission and Anticipated Discharge Date Admission Date: April 07, 2025 Supervising Physician Co-Signing Physician Notes Resident Physician Supervision Note: I interviewed and examined the patient. Discussed with Dr. Levin and agree with findings and plan as documented in the note. Any exceptions or clarifications are listed here: [ ] Documented By: Peyton Morgan MD, FACOG Subjective 25 yo post- day 3 s/p [] w/ PPH needing a FERN and loss of 1652ml of blood. Ambulation: ambulating normally. Though says her feet are still swollen Voiding: Voiding normally Passing Gas:: Yes Diet Tolerance:: regular diet. Feeding Type:: bottle feeding Current Pain Level:Improved. 2/10 pain. Resting comfortably this AM in NAD. Patient admits to leg and foot swelling that hasn't gone down. Patient has pain on her shins on both legs. Denies fevers/chills, AGEE, CP/palp, SOB/cough/wheeze, N/V, breast pain/dschrg, UTI Sx. Review of Systems Review of Systems: as per subjective HPI Physical Exam Constitutional: WD/WN, vitals as above ENMT: Mouth: no oropharynx abnormality, no oral mucosal abnormality, no tongue abnormality and oral mucous membranes not dry Respiratory: normal respiratory effort, lungs clear to auscultation Cardiovascular: Rate/Rhythm: regular rate and regular rhythm Heart Sounds: normal S1 and normal S2; no murmur Extremities: + calf tenderness (b/l tibia tenderness upon palpation), + pedal edema and + edema (1-2+ b/l) Gastrointestinal (Abdomen): Percussion/Palpation: + abdomen tender (throughout all quadrants) and abdomen soft Skin: no rashes, warm and dry Genitourinary: uterus was firm and 1 cm above umbilicus Results & Data Vital Signs (Past 12 Hours) Vital Signs Temp Pulse Resp BP Pulse Ox O2 Del Method 04/09/25 23:02 36.7 C 89 18 142/83 H 100 Room Air Laboratory Results 04/09/25 Range/Units 06:01 Hgb 7.2 L (12.0-16.0) g/dl Hct 23.2 L (37.0-47.0) % (2) Type 1 diabetes mellitus Diabetes mellitus complication status: with other specified complication Qualified Code(s): E10.69 - Type 1 diabetes mellitus with other specified complication
[2025-04-10 09:24] VITALS: BP 113/76; PULSE 86
--- NOTE | 2025-04-12 14:32 | Discharge Summary ---
Date of Service April 12, 2025 Admission HPI Per Admitting Provider FANNY Calculator Estimated Delivery Date Method Current WG Current Estimate 04/28/25 LMP (Uncertain) 36w 6d Other Estimates 04/25/25 Ultrasound #1 37w 2d and Delivery Plans Obesity (BMI between 35-39 @ beginning of ) *Growth US @ 32 wks *Weekly NSTs @ 36wks DM Protocol - Non compliant with persistently significantly elevated blood sugars noted *Baby ASA daily, start 12-28wks, continue until del *Ophthalmology consult - saw Jun 2024 *Dietary consult - sees endo *Qmonthly urine cultures * Echo [id number] 12/29/24 *Twice weekly NST's @ 32 or 34wks *Serial Growth US starting 28wks *Baseline 24hr Urine and Q trimester *EKG (Cardio [id number]) *Deliver at 37 weeks per MFM at [place] for severe macrosomia and grossly abnormal blood sugars Low lying placenta at 20 weeks will recheck with monthly growth scan Hypercholesterolemia Stopped Statin at +HPT Prior Schedule @ 28wk. C/S WITH TUBAL SCHEDULED FOR 04/23/[address] WILKINS AND DR. VILLATORO ASSIST C/S WITH TUBAL RESCHEDULED FOR 04/07/[address] DIANE AND DR. VILLATORO ASSIST Hx of LGA GBS Positive in Urine *Treat in Labor Hepatitis B Non Immune *Recommend Hepatitis B Vaccine Admission Exam (Per Admitting) Constitutional WD/WN, vitals as above well developed and well nourished Respiratory normal respiratory effort, lungs clear to auscultation normal respiratory effort Cardiovascular RRR, no murmur, no edema Gastrointestinal (Abdomen) normal bowel sounds, soft, nontender, no hepatosplenomegaly Discharge Data Consultations 04/07/25 07:51 Consult Anesthesiology Stat Procedures Performed Operation Date: 04/07/25 09:30 Actual Procedures p Section(Bilateral) - Addi Diane MD, FACOG s with Bilateral Tubal Ligation(Bilateral) - Addi Diane MD, FACOG Hospital Course (1) care and examination: Patient post status PP day 3 with complication of hemorrhage requiring a FERN. Patient is currently stable. Will discharge today. (2) Type 1 diabetes mellitus: Patient denied having the hospital to administer insulin for her. Patient desired to administer her home insulin herself. Supervising Physician Co-Signing Physician Notes Resident Physician Supervision Note: I interviewed and examined the patient. Discussed with Dr. Levin and agree with findings and plan as documented in the note. Any exceptions or clarifications are listed here: [ ] Documented By: Peyton Morgan MD, FACOG Coding Level of Care Code None Diagnoses care and examination Z39.2 Type 1 diabetes mellitus with other specified complication E10.69 Diabetes mellitus complication status: with other specified complication
== END 2025-04-10 12:43 | disposition home or self-care (01) | DRG 783 ==
LOC: 4S1 07:41 → 4E2 20:25 → EDSTATUS 04-23 10:10
PROC: M.PPTLD (2025-04-07 09:30)